=== PATIENT | female | born 1940 | race African-American/Black ===

== ENCOUNTER 2018-01-21 11:41 | Outpatient (CLI) | payer MEDICARE ==
[~2018-01-21 11:41] MED LIST: ATIVAN ONE
--- NOTE | 2018-01-21 14:18 | Magnetic Resonance Report ---
MRI OF THE BRAIN WITHOUT CONTRAST: HISTORY: Post dialysis encephalopathy. COMPARISON: None at this facility. PROCEDURE: Multiplanar, multisequence MR imaging of the brain without IV contrast was performed. FINDINGS: Moderate diffuse volume loss and moderate nonspecific chronic white matter changes are identified. A chronic cortical infarct in the right temporal lobe measures 5.7 x 2.8 cm in axial plane. A chronic cortical infarct in the right parietal region measures 2.4 x 1.9 cm. A chronic cortical infarct in the posterior left temporal lobe measures 3.4 x 2.1 cm. The diffusion sequence demonstrates an ill-defined area of weak diffusion restriction in the left posterior temporal region measuring up to 4.6 x 2.7 cm. There is subtle decreased signal in this area on the ADC map. This has the appearance of a subacute ischemic infarct which surrounds the chronic left posterior temporal infarct. No additional areas of diffusion restriction are identified. No evidence for hemorrhage, mass effect or extra axial fluid collection. The midline structures are central. The basal cisterns are patent. Normal ventricular size. The orbital cavities and sella turcica demonstrate no abnormality. The visualized paranasal sinuses and mastoid air cells are well aerated. IMPRESSION: Volume loss and chronic white matter changes. 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 There appears to be rather new subacute mahi-infarct ischemia surrounding the chronic left posterior temporal lobe infarct on today's exam. These findings were discussed with the patient's granddaughter in the MRI department. These findings were also discussed with Dr. Griffin at 1411 hrs.
== END 2018-01-21 11:42 | disposition home or self-care (01) ==
LOC: MRI 11:41
PROVIDERS: ATTEND Psychiatry & Neurology Neurology
DX: I63.9 Cerebral infarction, unspecified (principal); G93.6 Cerebral edema; Z91.041 Radiographic dye allergy status
CPT/HCPCS: 70551; J2060